=== PATIENT | female | born 1980 | race Caucasian/White ===

== ENCOUNTER 2018-09-27 11:16 | Emergency (ER) | payer SELFPAY ==
[~2018-09-27] VITALS: Ht 154.9 cm; Wt 50.3 kg
[2018-09-27 12:11] VITALS: BP 126/58
[2018-09-27] MEDS ORDERED: HYDROcodone/APAP 5/325MG 1 TAB TABLET PO ONE (12:30)
[2018-09-27] MEDS ORDERED: NAPR-695 PO (12:31)
[2018-09-27] MEDS ORDERED: PENI500T PO (12:31)
--- NOTE | 2018-09-27 12:31 | PHYS DOC ---
Past Medical History Past Medical History: Asthma (STEFANO YOUSSEF APRN) Past Surgical History: (STEFANO YOUSSEF APRN) Smoking: Less than 1pk/day Alcohol Use: Rarely Drug Use: None (STEFANO YOUSSEF APRN) Adult General Chief Complaint Chief Complaint: DENTAL PROBLEM HPI HPI Patient is a 38 year old female who presents to the emergency department with complaints of right lower dental pain for the last 3 days. She denies any fever, nausea, vomiting, rash, sore throat, cough, or foul taste in her mouth. Patient states she has had a broken tooth in this area for several years but never had pain like this. She currently rates the pain at 9 out of 10 on pain scale, states she has tried both Tylenol and ibuprofen at home with no relief of her pain. (STEFANO YOUSSEF APRN) Review of Systems Review of Systems Constitutional: Denies fever or chills [] Eyes: Denies change in visual acuity, redness, or eye pain [] HENT: See history of present illness Respiratory: Denies cough or shortness of breath [] Cardiovascular: No additional information not addressed in HPI [] GI: Denies abdominal pain, nausea, or vomiting Musculoskeletal: Denies back pain or joint pain [] Integument: Denies rash or skin lesions [] Neurologic: Denies headache, Complete systems were reviewed and found to be within normal limits, except as documented in this note. (STEFANO YOUSSEF APRN) Current Medications Current Medications Current Medications Medications (Trade) Dose Ordered Sig/Kalin Start Time Stop Time Status Last Admin Dose Admin Acetaminophen/ Hydrocodone Bitart (Lortab 5/325) 1 tab 1X ONCE 09/27/18 12:30 09/27/18 12:31 DC 09/27/18 12:33 1 TAB (ANNABEL PINO DO) Allergies Allergies Allergies Coded Allergies Type Severity Reaction Last Updated Verified No Known Drug Allergies 10/30/14 No (ANNABEL PINO DO) Physical Exam Physical Exam Constitutional: Well developed, well nourished, no acute distress, non-toxic appearance. [] HENT: Normocephalic, atraumatic, bilateral external ears normal, oropharynx moist, no oral exudates, nose normal; tooth #30 fractured with no visible abscess, surrounding gingiva swollen with mild right lower facial swelling [] Eyes: conjunctiva normal, no discharge. [] Neck: Normal range of motion, no tenderness, supple, no stridor. [] Cardiovascular:Heart rate regular rhythm, no murmur [] Lungs & Thorax: Bilateral breath sounds clear to auscultation with occasional expiratory wheeze, no retractions, no increased WOB [] Skin: Warm, dry, no erythema, no rash. [] Extremities: No cyanosis, ROM intact Neurologic: Alert and oriented X 3, no focal deficits noted. [] Psychologic: Affect normal, judgement normal, mood normal. [] (STEFANO YOUSSEF APRN) Current Patient Data Vital Signs Vital Signs Date Time Temp Pulse Resp B/P (MAP) Pulse Ox O2 Delivery O2 Flow Rate FiO2 09/27/18 12:33 20 96 Room Air 09/27/18 12:11 98.3 67 126/58 (80) 98.3 (PINOANNABEL FUENTES DO) EKG EKG [] (STEFANO YOUSSEF APRN) Radiology/Procedures Radiology/Procedures [] (STEFANO YOUSSEF APRN) Course & Med Decision Making Course & Med Decision Making Pertinent Labs and Imaging studies reviewed. (See chart for details) dx: dentalgia, fractured tooth, infected dental caries pt given one lortab 5/325 in er, Rx for pen VK and naproxen, follow up with DDS referral list provided. Patient verbalized an understanding of home care, medications, follow-up, and return to ED instructions and was in agreement with the plan of care. [] (STEFANO YOUSSEF APRN) Dragon Disclaimer Dragon Disclaimer This electronic medical record was generated, in whole or in part, using a voice recognition dictation system. (STEFANO YOUSSEF APRN) Departure Departure Impression: Primary Impression: Dentalgia Additional Impressions: Infected dental caries Broken tooth-uncomplic Disposition: 01 HOME, SELF-CARE Condition: STABLE Referrals: NO PCP (PCP) Patient Instructions: Dental Caries, Dental Pain, Htec-ud-[id number] Additional Instructions: Fill prescriptions and use as directed. Follow up with dentist using the referral list provided. Return to the ER if symptoms worsen. Scripts Penicillin V Potassium (PENICILLIN V POTASSIUM) 500 Mg Tablet 1 TAB PO QID for 10 Days, #40 TAB 0 Refills Prov: STEFANO YOUSSEF VISUAL COORDINATOR 09/27/18 Naproxen (NAPROXEN) 375 Mg Tablet 1 TAB PO BID for 10 Days, #20 TAB 0 Refills Prov: JFTanaSTEFANO VISUAL COORDINATOR 09/27/18 Attending Signature Attending Signature I have reviewed the PA/GRANT COORDINATOR's note and plan of care. I was available for consultation as needed during the patient's visit in the emergency department. I agree with the clinical impression, plan, and disposition. (ANNABEL PINO DO) Problem Qualifiers STEFANO YOUSSEF APRN Sep 27, 2018 12:31 ANNABEL PINO DO Sep 30, 2018 05:36
== END 2018-09-27 12:39 | disposition home or self-care (01) ==
LOC: ER 11:16
DX: S02.5XXA Fracture of tooth (traumatic), initial encounter for closed fracture (principal); K02.9 Dental caries, unspecified; J45.909 Unspecified asthma, uncomplicated; Z98.890 Other specified postprocedural states; F17.200 Nicotine dependence, unspecified, uncomplicated; X58.XXXA Exposure to other specified factors, initial encounter; Y93.89 Activity, other specified; Y92.89 Other specified places as the place of occurrence of the external cause; Y99.8 Other external cause status
CPT/HCPCS: 99283

== ENCOUNTER 2019-03-01 16:45 | Emergency (ER) | payer SELFPAY ==
[~2019-03-01] VITALS: Ht 157.5 cm; Wt 49.4 kg
[~2019-03-01 16:45] MED LIST: NAPR-695 PO; PENI500T PO
[2019-03-01] MEDS ORDERED: IV NORMAL SALINE 1000ML BAG 1,000 ML IV ONE (17:15)
[2019-03-01] MEDS ORDERED: methylPREDNISolone SOD SUCC PF 125 MG/2 ML VIAL. IV ONE (17:15)
[2019-03-01] MEDS ORDERED: IV NORMAL SALINE 500ML BAG 500 ML IV ONE (17:15)
[2019-03-01] MEDS ORDERED: ONDANSETRON PF 4 MG/2 ML VIAL. IV ONE (17:15)
[2019-03-01] MEDS ORDERED: IPRATRPIUM/ALBUTEROL 0.5/2.5MG 3 ML NEBU. NEB ONE (17:15)
--- NOTE | 2019-03-01 17:22 | PHYS DOC ---
Past Medical History Past Medical History: Asthma Past Surgical History: Alcohol Use: Rarely Drug Use: None Adult General Chief Complaint Chief Complaint: NAUSEA/VOMITING/DIARRHA HPI HPI Patient is a 39 year old female who presents with nausea, vomiting, diarrhea, body aches, runny nose, congestion, cough that started yesterday. The patient has a history of asthma and also states she's been wheezing. Denies any pain with exception of the body aches. Has been taking DayQuil at home. Review of Systems Review of Systems Constitutional: Reports fever or chills [] Eyes: Denies change in visual acuity, redness, or eye pain [] HENT: Reports nasal congestion, runny nose, and sore throat. Respiratory: Reports cough or shortness of breath [] Cardiovascular: No additional information not addressed in HPI [] GI: Denies abdominal pain,but reports nausea, vomiting, diarrhea. : Denies dysuria or hematuria [] Musculoskeletal: Denies back pain or joint pain [] Integument: Denies rash or skin lesions [] Neurologic: Reports headache, denies focal weakness or sensory changes [] Endocrine: Denies polyuria or polydipsia [] Complete systems were reviewed and found to be within normal limits, except as documented in this note. Current Medications Current Medications Current Medications Medications (Trade) Dose Ordered Sig/Kalin Start Time Stop Time Status Last Admin Dose Admin Albuterol/ Ipratropium (Duoneb) 3 ml 1X ONCE 03/01/19 17:15 03/01/19 17:16 DC 03/01/19 17:40 3 ML Methylprednisolone Sodium Succinate (SOLU-Medrol 125MG VIAL) 125 mg 1X ONCE 03/01/19 17:15 03/01/19 17:16 DC 03/01/19 17:17 125 MG Ondansetron HCl (Zofran) 4 mg 1X ONCE 03/01/19 17:15 03/01/19 17:16 DC 03/01/19 17:17 4 MG Potassium Chloride (Klor-Con) 40 meq 1X STAT 03/01/19 18:20 03/01/19 18:21 DC Sodium Chloride 500 ml @ 500 mls/hr 1X ONCE 03/01/19 17:15 03/01/19 18:14 DC 03/01/19 17:18 500 MLS/HR Allergies Allergies Allergies Coded Allergies Type Severity Reaction Last Updated Verified No Known Drug Allergies 10/30/14 No Physical Exam Physical Exam Constitutional: Well developed, well nourished, no acute distress, non-toxic appearance. [] HENT: Normocephalic, atraumatic, bilateral external ears normal, oropharynx moist, no oral exudates, nose normal. [] Eyes: PERRLA, EOMI, conjunctiva normal, no discharge. [] Neck: Normal range of motion, no tenderness, supple, no stridor. [] Cardiovascular:Heart rate regular rhythm, no murmur [] Lungs & Thorax: Bilateral breath sounds clear to auscultation [] Abdomen: Bowel sounds normal, soft, no tenderness, no masses, no pulsatile masses. [] Skin: Warm, dry, no erythema, no rash. [] Back: No tenderness, no CVA tenderness. [] Extremities: No tenderness, no cyanosis, no clubbing, ROM intact, no edema. [] Neurologic: Alert and oriented X 3, normal motor function, normal sensory function, no focal deficits noted. [] Psychologic: Affect normal, judgement normal, mood normal. [] Current Patient Data Vital Signs Vital Signs Date Time Temp Pulse Resp B/P (MAP) Pulse Ox O2 Delivery O2 Flow Rate FiO2 03/01/19 17:41 98 Room Air 03/01/19 17:00 97.4 82 14 131/82 (98) 97.4 Lab Values Laboratory Tests Test 03/01/19 17:11 03/01/19 17:15 POC Urine HCG, Qualitative Hcg negative (Negative) White Blood Count 7.3 x10^3/uL (4.0-11.0) Red Blood Count 4.55 x10^6/uL (3.50-5.40) Hemoglobin 13.0 g/dL (12.0-15.5) Hematocrit 39.1 % (36.0-47.0) Mean Corpuscular Volume 86 fL (79-100) Mean Corpuscular Hemoglobin 29 pg (25-35) Mean Corpuscular Hemoglobin Concent 33 g/dL (31-37) Red Cell Distribution Width 14.2 % (11.5-14.5) Platelet Count 307 x10^3/uL (140-400) Neutrophils (%) (Auto) 63 % (31-73) Lymphocytes (%) (Auto) 27 % (24-48) Monocytes (%) (Auto) 9 % (0-9) Eosinophils (%) (Auto) 0 % (0-3) Basophils (%) (Auto) 1 % (0-3) Neutrophils # (Auto) 4.6 x10^3/uL (1.8-7.7) Lymphocytes # (Auto) 2.0 x10^3/uL (1.0-4.8) Monocytes # (Auto) 0.6 x10^3/uL (0.0-1.1) Eosinophils # (Auto) 0.0 x10^3/uL (0.0-0.7) Basophils # (Auto) 0.0 x10^3/uL (0.0-0.2) Sodium Level 137 mmol/L (136-145) Potassium Level 3.2 mmol/L (3.5-5.1) L Chloride Level 102 mmol/L (98-107) Carbon Dioxide Level 24 mmol/L (21-32) Anion Gap 11 (6-14) Blood Urea Nitrogen 6 mg/dL (7-20) L Creatinine 0.7 mg/dL (0.6-1.0) Estimated GFR (Cockcroft-Gault) 93.2 BUN/Creatinine Ratio 9 (6-20) Glucose Level 109 mg/dL (70-99) H Calcium Level 8.6 mg/dL (8.5-10.1) Magnesium Level 1.9 mg/dL (1.8-2.4) Total Bilirubin 0.4 mg/dL (0.2-1.0) Aspartate Amino Transferase (AST) 18 U/L (15-37) Alanine Aminotransferase (ALT) 9 U/L (14-59) L Alkaline Phosphatase 71 U/L (46-116) Total Protein 7.9 g/dL (6.4-8.2) Albumin 3.8 g/dL (3.4-5.0) Albumin/Globulin Ratio 0.9 (1.0-1.7) L Influenza Type A Antigen Negative (NEGATIVE) Influenza Type B Antigen Negative (NEGATIVE) Laboratory Tests 03/01/19 17:15 Laboratory Tests 03/01/19 17:15 EKG EKG [] Radiology/Procedures Radiology/Procedures [] Course & Med Decision Making Course & Med Decision Making Pertinent Labs and Imaging studies reviewed. (See chart for details) Will get Labs, Flu, and will give supportive care. Labs are unremarkable. Will d/c home with zofran and inhaler. Dragon Disclaimer Dragon Disclaimer This electronic medical record was generated, in whole or in part, using a voice recognition dictation system. Departure Departure Impression: Primary Impression: Nausea & vomiting Additional Impressions: Diarrhea Asthma attack Disposition: HOME, SELF-CARE Condition: STABLE Referrals: NO PCP (PCP) Patient Instructions: Asthma Attacks, Prevention, Asthma, Adult, Nausea and Vomiting Additional Instructions: Thank you for visiting [facility]. We appreciate you trusting us with your care. If any additional problems come up don't hesitate to return to visit us. Please follow up with your primary care provider so they can plan additional care if needed and know about the problem that you had. If symptoms worsen come back to the Emergency Department. Any concerning symptoms that start such as chest pain, shortness of air, weakness or numbness on one side of the body, running high fevers or any other concerning symptoms return to the ER. Please fill your medications at any pharmacy and follow the prescription ins tructions. Scripts Ondansetron (ONDANSETRON ODT) 4 Mg Tab.rapdis 1 TAB PO PRN Q6-8HRS PRN for NAUSEA, #16 TAB Prov: ANNABEL ROBLEDO APRN 03/01/19 Albuterol Sulfate (PROAIR HFA INHALER) 8.5 Gm Hfa.aer.ad 2 PUFF IH PRN Q4-6HRS PRN for wheezing for 21 Days, #1 INHALER 0 Refills Prov: ANNABEL ROBLEDO APRN 03/01/19 Problem Qualifiers Primary Impression: Nausea & vomiting Vomiting type: unspecified Vomiting Intractability: unspecified Qualified Codes: R11.2 - Nausea with vomiting, unspecified Additional Impressions: Diarrhea Diarrhea type: unspecified type Qualified Codes: R19.7 - Diarrhea, unspecified Asthma attack Asthma severity: mild Asthma persistence: unspecified Qualified Codes: J45.901 - Unspecified asthma with (acute) exacerbation ANNABEL ROBLEDO APRN Mar 01, 2019 17:21
[2019-03-01 17:24] LABS: BASO % 1 % (0-3); EOS % 0 % (0-3); HEMATOCRIT 39.1 % (36.0-47.0); LYMPH % 27 % (24-48); MEAN CORPUSCULAR HEMOGLOBIN 29 pg (25-35); MEAN CORPUSCULAR HGB CONC 33 g/dL (31-37); MEAN CORPUSCULAR VOLUME 86 fL (79-100); MONO # 0.6 x10^3/uL (0.0-1.1); MONO % 9 % (0-9); NEUT # 4.6 x10^3/uL (1.8-7.7); NEUT % 63 % (31-73); PLATELET COUNT 307 x10^3/uL (140-400); RED BLOOD COUNT 4.55 x10^6/uL (3.50-5.40); RED CELL DISTRIBUTION WIDTH 14.2 % (11.5-14.5); WHITE BLOOD COUNT 7.3 x10^3/uL (4.0-11.0)
[2019-03-01 17:36] LABS: CALCIUM 8.6 mg/dL (8.5-10.1); CREATININE 0.7 mg/dL (0.6-1.0); GFR 93.2; POTASSIUM 3.2 mmol/L (3.5-5.1)
[2019-03-01 17:42] LABS: ALBUMIN 3.8 g/dL (3.4-5.0); ALBUMIN/GLOBULIN RATIO 0.9 (1.0-1.7); MAGNESIUM 1.9 mg/dL (1.8-2.4); TOTAL BILIRUBIN 0.4 mg/dL (0.2-1.0); TOTAL PROTEIN 7.9 g/dL (6.4-8.2)
[2019-03-01] MEDS ORDERED: POTASSIUM CHLORIDE 20 MEQ TABLET.ER. PO STA (18:20)
[2019-03-01 18:22] LABS: INFLUENZA A PATIENT NEGATIVE (NEGATIVE); INFLUENZA B PATIENT NEGATIVE (NEGATIVE)
[2019-03-01 18:29] VITALS: BP 118/66
[2019-03-01] MEDS ORDERED: ALBU2.5V8 IH (18:33)
[2019-03-01] MEDS ORDERED: ONDA4TAB12 PO (18:33)
== END 2019-03-01 19:06 | disposition home or self-care (01) ==
LOC: ER 16:45
DX: R11.2 Nausea with vomiting, unspecified (principal); R19.7 Diarrhea, unspecified; R50.9 Fever, unspecified; J45.901 Unspecified asthma with (acute) exacerbation; Z98.890 Other specified postprocedural states; Z79.899 Other long term (current) drug therapy
CPT/HCPCS: 36415; 80053; 81025; 83735; 85025; 87804; 94640; 96361; 96374; 96375; 99284; J2405; J2930; J7030; J7040; J7620

== ENCOUNTER 2019-04-01 13:02 | Emergency (ER) | payer SELFPAY ==
[~2019-04-01 13:02] MED LIST changes: +ALBU2.5V8 IH; +ONDA4TAB12 PO
[2019-04-01 13:19] VITALS: BP 100/60
--- NOTE | 2019-04-01 13:36 | PHYS DOC ---
Past Medical History Past Medical History: Asthma (STEFANO YOUSSEF APRN) Past Surgical History: (STEFANO YOUSSEF APRN) Alcohol Use: Rarely Drug Use: None (STEFANO YOUSSEF APRN) Adult General Chief Complaint Chief Complaint: FLU SYMPTOM HPI HPI Patient is a 39 year old female who presents to the emergency department with complaints of body aches, fatigue, dizziness, dry cough, nasal congestion, head ache, and nausea that began today. Patient denies any vomiting, diarrhea, abdominal pain, ear pain, sore throat, shortness of breath, or wheezing. She states she has a history of asthma. Patient denies having a flu immunization this fall. She currently rates her discomfort a 8 out of 10 on the pain scale, she denies any alleviating factors. All other ROS is neg unless otherwise noted in HPI. (STEFANO YOUSSEF APRN) Review of Systems Review of Systems See Above (STEFANO YOUSSEF APRN) Allergies Allergies Allergies Coded Allergies Type Severity Reaction Last Updated Verified amoxicillin Allergy Intermediate 04/01/19 Yes (ANNABEL PINO DO) Physical Exam Physical Exam See Above Constitutional: Well developed, well nourished, no acute distress, ill appearance HENT: Normocephalic, atraumatic, bilateral external ears normal, bilateral TMs normal, posterior pharynx normal oropharynx moist, nose congested with erythema and edema of the nasal turbinates bilaterally Eyes: PERRLA, conjunctiva injected bilaterally, no discharge. [] Neck: Normal range of motion, no stridor. [] Cardiovascular:Heart rate regular rhythm, no murmur [] Lungs & Thorax: Bilateral breath sounds clear to auscultation, Respirations even and unlabored, no retractions, no respiratory distress Skin: Warm, dry, no erythema, no rash. [] Back: No tenderness Extremities: No cyanosis, ROM intact Neurologic: Alert and oriented X 3, no focal deficits noted. [] Psychologic: Affect normal, judgement normal, mood normal. [][default value] (STEFANO YOUSSEF APRN) Current Patient Data Vital Signs Vital Signs Date Time Temp Pulse Resp B/P (MAP) Pulse Ox O2 Delivery O2 Flow Rate FiO2 04/01/19 13:19 99.4 98 16 100/60 (73) 98 Room Air 99.4 (ANNABEL PINO DO) Lab Values Laboratory Tests Test 04/01/19 13:27 Influenza Type A Antigen Negative (NEGATIVE) Influenza Type B Antigen Positive (NEGATIVE) (ANNABEL PINO DO) Lab Values Laboratory Tests Test 04/01/19 13:27 Influenza Type A Antigen Negative (NEGATIVE) Influenza Type B Antigen Positive (NEGATIVE) (STEFANO YOUSSEF APRN) EKG EKG [] (STEFANO YOUSSEF APRN) Radiology/Procedures Radiology/Procedures [] (STEFANO YOUSSEF APRN) Course & Med Decision Making Course & Med Decision Making Pertinent Labs and Imaging studies reviewed. (See chart for details) [] (STEFANO YOUSSEF APRN) Dragon Disclaimer Dragon Disclaimer This electronic medical record was generated, in whole or in part, using a voice recognition dictation system. (STEFANO YOUSSEF APRN) Departure Departure Impression: Primary Impression: Influenza B Disposition: HOME, SELF-CARE Condition: STABLE Referrals: NO PCP (PCP) Patient Instructions: Influenza, Adult, [id number] Additional Instructions: Fill the prescription and take as directed. Alternate Tylenol and ibuprofen as needed for fever. Increase clear fluids and rest. Diet as tolerated. Recommend use of [id number] flu medications as needed for relief of your symptoms. Follow up with your primary care doctor if symptoms persist, return to the ER symptoms worsen. Scripts Oseltamivir Phosphate (TAMIFLU) 75 Mg Capsule 1 CAP PO BID for 5 Days, #10 CAP 0 Refills Prov: STEFANO YOUSSEF APRN 04/01/19 Attending Signature Attending Signature I have reviewed the PA/ADMINISTRATIVE MANAGER's note and plan of care. I was available for consultation as needed during the patient's visit in the emergency department. I agree with the clinical impression, plan, and disposition. (ANNABEL PINO DO) STEFANO YOUSSEF APRN Apr 01, 2019 13:35 ANNABEL PINO DO Apr 02, 2019 11:13
[2019-04-01 14:01] LABS: INFLUENZA A PATIENT NEGATIVE (NEGATIVE)
[2019-04-01 14:03] LABS: INFLUENZA B PATIENT POSITIVE (NEGATIVE)
[2019-04-01] MEDS ORDERED: OSEL75CA PO (14:19)
== END 2019-04-01 14:24 | disposition home or self-care (01) ==
LOC: ER 13:02
DX: J10.1 Influenza due to other identified influenza virus with other respiratory manifestations (principal); R42 Dizziness and giddiness; R51 Headache; R09.81 Nasal congestion; R11.0 Nausea; R53.83 Other fatigue; L53.9 Erythematous condition, unspecified; J45.909 Unspecified asthma, uncomplicated; Z98.890 Other specified postprocedural states; Z88.0 Allergy status to penicillin
CPT/HCPCS: 87804; 99284

== ENCOUNTER 2019-07-05 12:31 | Emergency (ER) | payer SELFPAY ==
[~2019-07-05] VITALS: Ht 154.9 cm; Wt 50.0 kg
[~2019-07-05 12:31] MED LIST changes: +OSEL75CA PO
[2019-07-05 12:59] VITALS: BP 127/81
--- NOTE | 2019-07-05 13:25 | PHYS DOC ---
Past Medical History Past Medical History: Asthma Past Surgical History: Smoking Status: Current Every Day Smoker Alcohol Use: Rarely Drug Use: None General Adult EDM: Chief Complaint: SHORTNESS OF BREATH HPI: HPI: Patient is a 39 year old female with history of asthma who presents to the ED today stating she had an asthma attack while at work, she reports using her inhaler with good relief. Patient denies any symptoms right now. She states she has history of seasonal allergies and right now her symptoms have been increasing as the weather changes. Review of Systems: Review of Systems: Constitutional: Denies fever or chills. [] Eyes: Denies change in visual acuity. [] HENT: Denies nasal congestion or sore throat. [] Respiratory: Reports shortness of breath that has subsided. Denies cough Cardiovascular: Denies chest pain or edema. [] GI: Denies abdominal pain, nausea, vomiting, bloody stools or diarrhea. [] : Denies dysuria. [] Musculoskeletal: Denies back pain or joint pain. [] Integument: Denies rash. [] Neurologic: Denies headache, focal weakness or sensory changes. [] Endocrine: Denies polyuria or polydipsia. [] Lymphatic: Denies swollen glands. [] Psychiatric: Denies depression or anxiety. [] Heart Score: Risk Factors: Risk Factors: DM, Current or recent (<one month) smoker, HTN, HLP, family history of CAD, obesity. Risk Scores: Score 0 - 3: 2.5% MACE over next 6 weeks - Discharge Home Score 4 - 6: 20.3% MACE over next 6 weeks - Admit for Clinical Observation Score 7 - 10: 72.7% MACE over next 6 weeks - Early Invasive Strategies Allergies: Allergies: Allergies Coded Allergies Type Severity Reaction Last Updated Verified amoxicillin Allergy Intermediate 04/01/19 Yes Physical Exam: PE: Constitutional: Well developed, well nourished, no acute distress, non-toxic appearance. [] HENT: Normocephalic, atraumatic, bilateral external ears normal, oropharynx moist, no oral exudates, nose normal. [] Eyes: PERRLA, EOMI, conjunctiva normal, no discharge. [] Neck: Normal range of motion, no tenderness, supple, no stridor. [] Cardiovascular:Heart rate regular rhythm, no murmur [] Lungs & Thorax: Bilateral breath sounds clear to auscultation [] Abdomen: Bowel sounds normal, soft, no tenderness, no masses, no pulsatile masses. [] Skin: Warm, dry, no erythema, no rash. [] Back: No tenderness, no CVA tenderness. [] Extremities: No tenderness, no cyanosis, no clubbing, ROM intact, no edema. [] Neurologic: Alert and oriented X 3, normal motor function, normal sensory function, no focal deficits noted. [] Psychologic: Affect normal, judgement normal, mood normal. [] Current Patient Data: Vital Signs: Vital Signs Date Time Temp Pulse Resp B/P (MAP) Pulse Ox O2 Delivery O2 Flow Rate FiO2 07/05/19 12:59 97.8 87 18 127/81 (96) 100 Room Air 97.8 EKG: EKG: [] Radiology/Procedures: Radiology/Procedures: [] Course & Med Decision Making: Course & Med Decision Making Pertinent Labs and Imaging studies reviewed. (See chart for details) This is a 39-year-old female patient presenting to the ED today complaining of an asthma attack that occurred while at work. She reports she has an inhaler which relieved her symptoms. She also has history of seasonal allergies. Her oxygen saturations in the ED 100% on room air, patient has no symptoms right now. She is requesting a note for work which was provided. She was discharged back to home. Encourage her to take allergy medications. Kacie Disclaimer: Kacie Disclaimer: This electronic medical record was generated, in whole or in part, using a voice recognition dictation system. Departure Departure Impression: Primary Impression: Asthma attack Qualified Codes: J45.21 - Mild intermittent asthma with (acute) exacerbation Disposition: 01 HOME, SELF-CARE Condition: STABLE Referrals: NO PCP (PCP) follow up next week with your doctor Patient Instructions: Asthma, Adult, [id number] Additional Instructions: You were seen in the emergency room for asthma attack and seasonal allergies. Continue using your inhaler as well as taking [id number]-[id number] anti-allergy medications. BETZAIDA JOHNSON DARKROOM TECHNICIAN Jul 05, 2019 13:25
== END 2019-07-05 14:26 | disposition home or self-care (01) ==
LOC: ER 12:31
DX: J45.21 Mild intermittent asthma with (acute) exacerbation (principal); F17.200 Nicotine dependence, unspecified, uncomplicated; Z88.1 Allergy status to other antibiotic agents
CPT/HCPCS: 99282